=== PATIENT | male | born 1950 | race Caucasian/White ===

== ENCOUNTER 2017-05-18 16:24 | Inpatient (IN) | payer BC ==
--- NOTE | 2017-05-18 16:43 | PDOC ---
Attending Attestation - Resident Resident Name: Shauna Carreon - ED Attending Attestation I have performed the following: I have examined & evaluated the patient, The case was reviewed & discussed with the resident, I agree w/resident's findings & plan, Exceptions are as noted - HPI HPI: 05/18/17 19:13 Pt with CP with exertion - Physicial Exam PE: 05/18/17 19:13 heart reg lungs cta no c/c/e - Medical Decision Making 05/18/17 16:42 I, Dr. Brinda Pizano, DO, attest that this document has been prepared under my direction and personally reviewed by me in its entirety. I further attest, that it accurately reflects all work, treatment, procedures and medical decision -making performed by me. 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 -cxr -ekg 05/18/17 18:30 pt with elevated trop NSTEMI -call placed to cards asa given 05/18/17 18:32 call placed to hospitalist - pending call back 05/18/17 19:12 case discussed with Bobby, accepts pt to service, under Jeff 05/18/17 19:12 Discharge Disposition - Diagnosis NSTEMI (non-ST elevated myocardial infarction) - Discharge Dispostion Condition at time of disposition: Guarded Admit: Yes Heart Score/ECG Review - History History: Highly suspicious - Electrocardiogram EKG: Non specific repolarization disturbance - Age Age: 45-65 - Risk Factors Risk Factors Heart Score: Yes Hx Obesity Based on the list above the patient has:: 1-2 risk factors - Troponin Troponin: >/=3x normal limit - Score Heart Score - Total: 7 - ECG Intrepretation Comment:: 05/18/17 18:28 sinus at 69, nl axis, nl interval, t wave inversions anterior leads - abnl ekg Critical Care Total Critical Care Time (in minutes): 30 Critical Care Statement: The care of this patient involved high complexity decision making to prevent further life threatening deterioration of the patient 's condition and/or to evaluate & treat vital organ system(s) failure or risk of failure.
--- NOTE | 2017-05-18 16:51 | PDOC ---
History of Present Illness - General Chief Complaint: Chest Pain Stated Complaint: CHEST PAIN Time Seen by Provider: 05/18/17 16:41 History Source: Patient - History of Present Illness Initial Comments: 05/18/17 16:56 CC: 2 week h/o chest pain with exertion Patient is a 66 y.o. male with a PMH of morbid obesity and chronic depression who presents with a c/o 2 week h/o of chest pain with exertion (long walks, bike riding) that resolves upon rest. Patient describes the pain as both burning and throbbing. Patient notes a belch and subsequent gurgling sound associated with the resolution of pain. Patient denies any associated shortness of breath, diaphoresis, nausea, vomiting. Patient notes he recently switched his anti-depressant however the chest pain started 2 weeks following the medication switch. Past History - Past Medical History Allergies/Adverse Reactions: Allergies Allergy/AdvReac Type Severity Reaction Status Date / Time No Known Allergies Allergy Verified 05/18/17 16:27 Home Medications: Ambulatory Orders Atorvastatin Ca [Lipitor] 80 mg PO HS tablet 05/18/17 Clopidogrel Bisulfate [Plavix -] 75 mg PO DAILY tablet 05/18/17 Omeprazole 20 mg PO DAILY 05/18/17 Vortioxetine Hydrobromide [Trintellix] 5 mg PO DAILY 05/18/17 GI Disorders: Yes (gerd) Psychiatric Problems: Yes (depression) - Surgical History Abdominal Surgery: Yes (sleeve gastrectomy) - Suicide/Smoking/Psychosocial Hx Smoking History: Former smoker Have you smoked in the past 12 months: No Information on smoking cessation initiated: No Hx Alcohol Use: No Drug/Substance Use Hx: No Substance Use Type: None Review of Systems - Review of Systems Constitutional: No: Diaphoresis, Fever, Night Sweats, Unexplained wgt Loss HEENTM: No: Blurred Vision, Double Vision Respiratory: No: Orthopnea Cardiac (ROS): Yes: Chest Pain ABD/GI: No: Constipated, Nausea, Vomiting : No: Burning, Dysuria Musculoskeletal: No: Back Pain Neurological: No: Headache Psychiatric: Yes: Depression All Other Systems: Reviewed and Negative *Physical Exam - Vital Signs Last Vital Signs Temp Pulse Resp BP Pulse Ox 98.0 F 71 18 180/75 100 05/18/17 16:28 05/18/17 16:28 05/18/17 16:28 05/18/17 16:28 05/18/17 16:28 - Physical Exam General Appearance: Yes: Nourished, Obese HEENT: positive: EOMI Neck: positive: Trachea midline, Supple Respiratory/Chest: positive: Lungs Clear, Normal Breath Sounds Cardiovascular: positive: Regular Rhythm, Regular Rate, S1, S2 Gastrointestinal/Abdominal: positive: Normal Bowel Sounds, Soft Extremity: positive: Normal Capillary Refill, Normal Inspection 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 male who presents with a 2 week h/o of chest pain w/ exertion, with UGI (belching) symptoms upon relief of chest pain. Initial DDX includes GERD vs. Posterior [place] PLAN: 1. Troponin 2. CXR Troponin (+) @ 2.57; spoke with cardiology. Patient given ASA and started on IV Lovenox. Patient to be admitted under Dr. Aguilar *DC/Admit/Observation/Transfer Diagnosis at time of Disposition: NSTEMI (non-ST elevated myocardial infarction) - Discharge Dispostion Disposition: TRANSFER ACUTE CARE/OTHER HOSP Condition at time of disposition: Guarded
[2017-05-18 17:36] LABS: BASOPHIL 1.1 % (0-2.0); EOSINOPHIL 1.4 % (0-4.5); MCH 31.1 pg (25.7-33.7); MCHC 33.5 g/dl (32.0-35.9); MEAN CELL VOLUME 92.9 fl (80-96); MEAN PLT VOLUME 11.5 fl (7.5-11.1); NEUTROPHILS 53.8 % (42.8-82.8); PLATELET COUNT 167 K/MM3 (134-434); RDW 14.1 % (11.9-15.9); WHITE BLOOD COUNT 10.7 K/mm3 (4.0-10.0)
[2017-05-18] MEDS ORDERED: ASPIRIN 325 MG TABLET PO ONE (17:56)
[2017-05-18 17:59] LABS: ALBUMIN 3.7 g/dl (3.4-5.0); ANION GAP 7 (8-16); CALCIUM 8.9 mg/dL (8.5-10.1); CO2 30 mmol/L (21-32); CREATININE 1.1 mg/dL (0.7-1.3); GLUCOSE,RANDOM 86 mg/dL (74-106); SGPT/ALT 26 U/L (12-78)
[2017-05-18 18:16] LABS: ALK PHOS 68 U/L (45-117); BILIRUBIN,TOTAL 0.6 mg/dL (0.2-1.0); TOT PROT 7.1 g/dl (6.4-8.2)
[2017-05-18 18:18] LABS: CPK 194 IU/L (39-308); SGOT/AST 42 U/L (15-37); TROPONIN I 2.57 ng/ml (0.00-0.05)
[2017-05-18] MEDS ORDERED: [UNRECOGNIZED DRUG - OTHER] SQ ONE (18:19)
[2017-05-18] MEDS ORDERED: HEPARIN NA (PORCINE) 5,000 UNITS/ML 1ML VIAL IVPUSH PRN (18:24)
[2017-05-18] MEDS ORDERED: HEPARIN - 25,000 UNIT in SODIUM CHLORIDE 495 ML IV SCH (18:30)
[2017-05-18] MEDS ORDERED: ASPIRIN 81 MG CHEWABLE TABLETS PO ONE (18:31)
[2017-05-18] MEDS ORDERED: ENOXAPARIN NA (PORCINE) 120 MG/0.8 ML DISP.SYRIN SQ SCH (18:45)
[2017-05-18] MEDS ORDERED: ENOXAPARIN NA (PORCINE) 100 MG/1 ML DISP.SYRIN SQ ONE (19:20)
[2017-05-18] MEDS ORDERED: HEPARIN INFUSION - 500 ML IVPB ONE (19:21)
[2017-05-18] MEDS ORDERED: ENOXAPARIN NA (PORCINE) 30 MG/0.3 ML DISP.SYRIN SQ ONE (19:21)
--- NOTE | 2017-05-18 20:53 | HP ---
CHIEF COMPLAINT: intermittent chest pain PCP: Dr. Vicky Trejo ([facility]) HISTORY OF PRESENT ILLNESS: 66yo M with PMH of morbid obesity, sleep apnea, GERD, depression, presents c/o intermittent chest pain x 2 weeks. Chest pain was substernal, non-radiating, described as a burning/throbbing quality so pt attributed pain to GERD. Chest pain was provoked by exertion (long walks and bike riding). Chest pain is now resolved. Family hx of father passed from [place] at age 85 and brother recently diagnosed with AAA at age 64. Pt recently switched anti-depression medication to Trintellix. Pt's at bedside, brought pt's cpap machine for his sleep apnea. Pt denies fever, chills, headache, palpitations, sob, syncope, nausea, vomiting. ER course was notable for: (1) EKG -> NSR (2) trop -> 2.57 (3) Lovenox, ASA PAST MEDICAL HISTORY: depression gerd sleep apnea morbid obesity osteoarthritis of shoulders peripheral neuropathy PAST SURGICAL HISTORY: sleeve gastrectomy 2010 Right total hip replacement 2009 Social History: Smoking: former, 1 pipe per day, quit 35 yrs ago Alcohol: former, sober x 3.5 yrs Drugs: denies Family History: dad - passed from [place] age 85 brother - AAA age 64 Allergies No Known Allergies Allergy (Verified 05/18/17 16:27) HOME MEDICATIONS: Home Medications Medication Instructions Recorded Omeprazole 20 mg PO DAILY 05/18/17 Vortioxetine Hydrobromide 5 mg PO DAILY 05/18/17 [Trintellix] REVIEW OF SYSTEMS CONSTITUTIONAL: Absent: fever, chills, diaphoresis, generalized weakness, malaise HEENT: Absent: rhinorrhea, nasal congestion, throat pain, visual changes CARDIOVASCULAR: Present: chest pain with exertion Absent: syncope, palpitations, irregular heart rate, lightheadedness, peripheral edema RESPIRATORY: Absent: cough, shortness of breath, wheezing, stridor, hemoptysis GASTROINTESTINAL: Absent: abdominal pain, abdominal distension, nausea, vomiting, diarrhea, constipation, melena, hematochezia GENITOURINARY: Absent: dysuria, hematuria, flank pain MUSCULOSKELETAL: Present: chronic back pain, shoulder pain 2/2 OA Absent: myalgia, joint swelling, neck pain SKIN: Absent: rash, itching, pallor HEMATOLOGIC/IMMUNOLOGIC: Absent: easy bleeding, easy bruising NEUROLOGIC: Present: focal paresthesias - hand tingling Absent: headache, dizziness PHYSICAL EXAMINATION Last Vital Signs Temp Pulse Resp BP Pulse Ox 98.0 F 71 18 180/75 100 05/18/17 16:28 05/18/17 16:28 05/18/17 16:28 05/18/17 16:28 05/18/17 16:28 GENERAL: Awake, alert, and fully oriented, in no acute distress. HEAD: Normal with no signs of trauma. EYES: Extraocular movements intact, sclera anicteric, conjunctiva clear. No lid lag. EARS, NOSE, THROAT: Moist mucous membranes. NECK: Normal range of motion, supple, trachea midline. LUNGS: Breath sounds equal, clear to auscultation bilaterally. No wheezes, and no crackles. No accessory muscle use. HEART: Regular rate and rhythm, normal S1 and S2 without murmur, rub or gallop. ABDOMEN: Soft, nontender, not distended, normoactive bowel sounds, no guarding, no rebound, no masses. MUSCULOSKELETAL: Normal range of motion at all joints. No bony deformities or tenderness. No CVA tenderness. LOWER EXTREMITIES: 1+ pitting edema nuha. Warm, well-perfused. No calf tenderness. PSYCHIATRIC: Cooperative. Good eye contact. Appropriate mood and affect. SKIN: Warm, dry, normal turgor, no rashes or lesions noted. Laboratory Last Values WBC 10.7 K/mm3 (4.0-10.0) H 05/18/17 17:26 RBC 5.26 M/mm3 (4.00-5.60) 05/18/17 17:26 Hgb 16.4 GM/dL (11.7-16.9) 05/18/17 17:26 Hct 48.8 % (35.4-49) 05/18/17 17:26 MCV 92.9 fl (80-96) 05/18/17 17:26 MCH 31.1 pg (25.7-33.7) 05/18/17 17:26 MCHC 33.5 g/dl (32.0-35.9) 05/18/17 17: RDW 14.1 % (11.9-15.9) 05/18/17 17:26 Plt Count 167 K/MM3 (134-434) 05/18/17 17:26 MPV 11.5 fl (7.5-11.1) H 05/18/17 17:26 Neutrophils % 53.8 % (42.8-82.8) 05/18/17 17:26 Lymphocytes % 32.9 % (8-40) 05/18/17 17:26 Monocytes % 10.8 % (3.8-10.2) H 05/18/17 17:26 Eosinophils % 1.4 % (0-4.5) 05/18/17 17:26 Basophils % 1.1 % (0-2.0) 05/18/17 17:26 Sodium 142 mmol/L (136-145) 05/18/17 17:26 Potassium 4.6 mmol/L (3.5-5.1) 05/18/17 17:26 Chloride 105 mmol/L (98-107) 05/18/17 17:26 Carbon Dioxide 30 mmol/L (21-32) 05/18/17 17:26 Anion Gap 7 (8-16) L 05/18/17 17:26 BUN 21 mg/dL (7-18) H 05/18/17 17:26 Creatinine 1.1 mg/dL (0.7-1.3) 05/18/17 17:26 Creat Clearance w eGFR > 60 (>60) 05/18/17 17:26 Random Glucose 86 mg/dL (74-106) 05/18/17 17:26 Calcium 8.9 mg/dL (8.5-10.1) 05/18/17 17:26 Total Bilirubin 0.6 mg/dL (0.2-1.0) 05/18/17 17:26 AST 42 U/L (15-37) H 05/18/17 17:26 ALT 26 U/L (12-78) 05/18/17 17:26 Alkaline Phosphatase 68 U/L (45-117) 05/18/17 17:26 Creatine Kinase 194 IU/L (39-308) 05/18/17 17:26 Creatine Kinase Index 4.4 % (0.0-5.0) 05/18/17 17:26 CK-MB (CK-2) 8.648 ng/mL (0.5-3.6) H 05/18/17 17:26 Troponin I 2.57 ng/ml (0.00-0.05) H* 05/18/17 17:26 Total Protein 7.1 g/dl (6.4-8.2) 05/18/17 17:26 Albumin 3.7 g/dl (3.4-5.0) 05/18/17 17:26 IMAGIN05/18/17 EKG -> NSR 05/18/17 CXR -> no acute lung pathology ASSESSMENT/PLAN: 66yo M with PMH of morbid obesity, sleep apnea, GERD, depression, presents with hypertensive emergency and nstemi. 1) nstemi/hypertensive emergency - Heparin drip to begin at 6am tomorrow (as Lovenox given in ER), with CBC/ ptt/stool for occult blood series - Plavix 600mg stat, Plavix 75mg po daily beginning tomorrow - Lipitor 80mg po daily - hold Metoprolol 2/2 heart rate - echo - Cardiology Consult - f/u troponin, hgba1c, bnp, mg, phos, tsh - f/u Duplex venous US nuha LE to - npo after midnight, as pt may be transferred for cath tomorrow 2) depression - continue home med Trintellix 5mg po daily 3) gerd - Protonix 40mg IVPB daily 4) sleep apnea - continue CPAP 5) peripheral neuropathy - pt completing outpatient work-up 6) DVT prophylaxis - Heparin drip Pt will be transferred for cardiac catheterization to [facility]. Visit type - Emergency Visit Emergency Visit: Yes ED Registration Date: 05/18/17 Care time: The patient presented to the Emergency Department on the above date and was hospitalized for further evaluation of their emergent condition. - New Patient This patient is new to me today: Yes Date on this admission: 05/18/17 - Critical Care Critical Care patient: No
[2017-05-18] MEDS ORDERED: CLOPIDOGREL BISULFATE 300 MG TABLET PO ONE (21:06)
--- NOTE | 2017-05-18 21:34 | HP ---
Admitting History and Physical - Admission History of Present Illness: 66M with PMH of morbid obesity MANSI and depression who presents to the ED with 2 week history of chest pain. Patient states he has been having exertional chest pain which resolves at rest. He also has GERD and his chest pain is sometimes relieved when he belches. His symptoms have been going on for the past 2 week. He states that he at times has numbness in his hand as well. He states he has peripheral neuropathy in his legs and the cause is unknown. Found to have an NSTEMI in the ED. During interview was getting patient riled up and he started to have symtopms and they went away when he calmed down. He states he thought his symptoms were all due to GERD. He had a stress test in the past patient states "I had it done because i am fat" which was negative. He denies nausea vomiting fevers chills or shortness of breath He denies palpitations or presyncopal symptoms. Denies dysuria. He states his left leg is always more swollen for the right History Source: Patient Limitations to Obtaining History: No Limitations - Past Medical History Additional Past Medical History: as above - Past Surgical History Additional Past Surgical History: Hip replacement gastric sleeve - Smoking History Smoking history: Former smoker (used to smoke a pipe in his 20s) Have you smoked in the past 12 months: No - Alcohol/Substance Use Hx Alcohol Use: No Home Medications - Allergies Allergies/Adverse Reactions: Allergies Allergy/AdvReac Type Severity Reaction Status Date / Time No Known Allergies Allergy Verified 05/18/17 16:27 - Home Medications Home Medications: Ambulatory Orders Omeprazole 20 mg PO DAILY 05/18/17 Vortioxetine Hydrobromide [Trintellix] 5 mg PO DAILY 05/18/17 Family Disease History - Family Disease History Family Disease History: Heart Disease: Father ( of [place] in 80's ) Review of Systems - Review of Systems Constitutional: reports: No Symptoms Eyes: reports: No Symptoms HENT: reports: No Symptoms Neck: reports: No Symptoms Cardiovascular: reports: Chest Pain, Edema Respiratory: denies: Orthopnea, SOB Genitourinary: reports: No Symptoms Breasts: reports: No Symptoms Reported Musculoskeletal: reports: No Symptoms Integumentary: reports: No Symptoms Neurological: reports: Parasthesia Endocrine: reports: No Symptoms Psychiatric: reports: Depression Physical Examination Vital Signs: Vital Signs Temperature 98.0 F 05/18/17 16:28 Pulse Rate 71 05/18/17 16:28 Respiratory Rate 18 05/18/17 16:28 Blood Pressure 180/75 05/18/17 16:28 O2 Sat by Pulse Oximetry (%) 100 05/18/17 16:28 Constitutional: Yes: No Distress, Calm, Obese Eyes: Yes: Conjunctiva Clear, EOM Intact HENT: Yes: Atraumatic, Normocephalic Neck: Yes: Supple, Trachea Midline Cardiovascular: Yes: Regular Rate and Rhythm, S1, S2. No: JVD, Murmur Respiratory: Yes: Regular, CTA Bilaterally Gastrointestinal: Yes: Normal Bowel Sounds, Soft. No: Tenderness Breast(s): Yes: Gynecomastia Edema: LLE: 1+ (pitting up to distal gallegos ), RLE: 1+ (pitting up to distal gallegos ) Peripheral Pulses: Left Doralis Pedis: 2+, Right Dorsalis Pedis: 2+ Integumentary: Yes: Venous Stasis Changes (bilateral lower extremities) Imaging - Results Chest X-ray: Report Reviewed, Image Reviewed EKG: Report Reviewed, Image Reviewed Assessment/Plan 66M with PMH of obesity MANSI depression presents to the ED with new onset angina and NSTEMI. Problem list: [id number] onset NSTEMI hypertensive emergency obesity-morbid obstructive sleep apnea depression peripheral neuropathy GERD Admit to telmetry cardiac monitoring trend troponins cardiology consult case discusedd with Dr. 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 - New Patient This patient is new to me today: Yes Date on this admission: 05/18/17 - Critical Care Critical Care patient: No
--- NOTE | 2017-05-18 21:54 | PN ---
Teaching Attending Note Name of Resident: Maral Arndt ATTENDING PHYSICIAN STATEMENT I saw and evaluated the patient. I reviewed the resident's note and discussed the case with the resident. I agree with the resident's findings and plan as documented. SUBJECTIVE: 66 year old male c/o 2 week history of epigastric /substernal exertional chest pain 6/10 in intensity , non radiating . Relieved by rest . Associated with left arm numbness. Denies diaphoresis, lightheadedness or syncope. Patient is seen in ED for possible admission . In ED received Lovenox SC 120 Heparin drip was ordered as per [facility] GERD SxHX Gastric sleeve Social History Denies smoking Denies alcohol abuse Family History CAD - father Aortic aneurism -brother OBJECTIVE: Vital Signs Temperature 98.0 F 05/18/17 16:28 Pulse Rate 71 05/18/17 16:28 Respiratory Rate 18 05/18/17 16:28 Blood Pressure 180/75 05/18/17 16:28 O2 Sat by Pulse Oximetry (%) 100 05/18/17 16:28 HENT: Yes: Atraumatic, Normocephalic Neck: Yes: Supple, Trachea Midline Cardiovascular: Yes: Regular Rate and Rhythm, S1, S2. No: JVD, Murmur Respiratory: Yes: Regular, CTA Bilaterally Gastrointestinal: Yes: Normal Bowel Sounds, Soft. No: Tenderness Breast(s): Yes: Gynecomastia Edema: LLE: 1+ (pitting up to distal gallegos ), RLE: 1+ (pitting up to distal gallegos ) Peripheral Pulses: Left Doralis Pedis: 2+, Right Dorsalis Pedis: 2+ Integumentary: Yes: Venous Stasis Changes (bilateral lower extremities) CBC, BMP 05/18/17 17:26 05/18/17 17:26 Troponin - 2.7 EKG -reviewed ASSESSMENT AND PLAN: 1. Unstabe Angina 2. NSTEMI 3. Obesity 4. Uncontrolled HTN Lovenox 120SC given in the ED Hold heparin drip for now and start in 12HR No bbl due to bradycardia Loaded with Plavix in ED Telemetry After discussion with patient and family about the need for cardiac catheterisation ( that is not offered in this facility) they would like to be transferred to [place] under care of [facility] Dr Garcia. Case was discussed with Dr Garcia. Transport is on the way .
[2017-05-18] MEDS ORDERED: ATORVASTATIN CA 80 MG TABLET (FP) PO SCH (22:00)
[2017-05-18 22:02] LABS: PHOSPHOROUS 2.8 mg/dL (2.5-4.9)
[2017-05-18 22:08] LABS: THYROID STIMULATING HORMONE 3.86 uIU/ml (0.358-3.74)
[2017-05-18 22:09] LABS: INR 1.2 (0.82-1.09); PROTHROMBIN TIME (PATIENT) 13.2 SEC (9.98-11.88)
[2017-05-18 22:18] LABS: MAGNESIUM 2.1 mg/dL (1.8-2.4)
[2017-05-18 22:20] LABS: TROPONIN I 2.63 ng/ml (0.00-0.05)
[2017-05-18] MEDS ORDERED: CLOPIDOGREL BISULFATE 300 MG TABLET ONE (22:36)
[2017-05-18] MEDS ORDERED: ATORVASTATIN CA 80 MG TABLET (FP) ONE (22:36)
--- NOTE | 2017-05-18 23:11 | DS ---
Physical Exam: SUBJECTIVE: Patient seen and examined. Being transferred for cardiac cath OBJECTIVE: Vital Signs Period Temp Pulse Resp BP Sys/Curiel Pulse Ox Last 24 Hr 98.2 F 58 18 162/87 99 PHYSICAL EXAM Constitutional: Yes: No Distress, Calm, Obese Eyes: Yes: Conjunctiva Clear, EOM Intact HENT: Yes: Atraumatic, Normocephalic Neck: Yes: Supple, Trachea Midline Cardiovascular: Yes: Regular Rate and Rhythm, S1, S2. No: JVD, Murmur Respiratory: Yes: Regular, CTA Bilaterally Gastrointestinal: Yes: Normal Bowel Sounds, Soft. No: Tenderness Breast(s): Yes: Gynecomastia Edema: LLE: 1+ (pitting up to distal gallegos ), RLE: 1+ (pitting up to distal gallegos ) Peripheral Pulses: Left Doralis Pedis: 2+, Right Dorsalis Pedis: 2+ Integumentary: Yes: Venous Stasis Changes (bilateral lower extremities) LABS Laboratory Results - last 24 hr 05/18/17 05/18/17 05/18/17 19:54 20:35 20:35 PT with INR INR PTT (Actin FS) Phosphorus 2.8 Magnesium 2.1 Creatine Kinase Cancelled 192 Creatine Kinase Index 3.9 CK-MB (CK-2) 7.583 H Troponin I Cancelled 2.63 H* B-Natriuretic Peptide 1141.96 H TSH 3.86 H 05/18/17 05/18/17 21:45 21:45 PT with INR 13.20 H INR 1.20 H PTT (Actin FS) 32.9 Phosphorus Magnesium Creatine Kinase Creatine Kinase Index CK-MB (CK-2) Troponin I B-Natriuretic Peptide TSH HOSPITAL COURSE: Date of Admission:05/18/17 Date of Discharge: 05/18/17 66M with history of obesity MANSI GERD presents with chest pain and anginal symtpoms for 2 weeks. Pain is with exertional and is relieved by rest. Found to have NSTEMI with troponin 2.6. Cardiology consulted. Given lovenox and plavix loaded given aspirin and statin. Admitted to the hospitalist service but is still in the ED and will be transferred to [place] for cardiac catheterization under the care of Dr. Garcia. Minutes to complete discharge: 35 Discharge Summary Reason For Visit: NSTEMI Current Active Problems Angina pectoris (Acute) Hypertensive emergency (Acute) NSTEMI (non-ST elevated myocardial infarction) (Acute) Depression (Chronic) GERD (gastroesophageal reflux disease) (Chronic) Obesity (Chronic) Obstructive sleep apnea (Chronic) Condition: Guarded - Instructions Diet, Activity, Other Instructions: you are being transferred to [facility] for cardiac catheterization. it is important you continue to follow up with your doctors and cardiologists continue your medications eat a low sodium diet Good luck Referrals: Vicky Trejo MD [Primary Care Provider] - Disposition: TRANSFER ACUTE CARE/OTHER HOSP - Home Medications Comprehensive Discharge Medication List: Ambulatory Orders Atorvastatin Ca [Lipitor] 80 mg PO HS tablet 05/18/17 Clopidogrel Bisulfate [Plavix -] 75 mg PO DAILY tablet 05/18/17 Omeprazole 20 mg PO DAILY 05/18/17 Vortioxetine Hydrobromide [Trintellix] 5 mg PO DAILY 05/18/17 This patient is new to me today: Yes Date on this admission: 05/18/17 Emergency Visit: Yes ED Registration Date: 05/18/17 Care time: The patient presented to the Emergency Department on the above date and was hospitalized for further evaluation of their emergent condition. Critical Care patient: Yes Total Critical Care Time (in minutes): 35 Critical Care Statement: The care of this patient involved high complexity decision making to prevent further life threatening deterioration of the patient 's condition and/or to evaluate & treat vital organ system(s) failure or risk of failure. - Discharge Referral Referred to [facility] No
[2017-05-19 01:14] VITALS: BMI 44.5
[2017-05-19] MEDS ORDERED: HEPARIN INFUSION - 500 ML IVPB SCH (06:00)
[2017-05-19] MEDS ORDERED: HEPARIN NA (PORCINE) 5,000 UNITS/ML 1ML VIAL IVPUSH PRN ×2 (06:00)
[2017-05-19 07:29] LABS: EOSINOPHIL 2.5 % (0-4.5); MCHC 33.7 g/dl (32.0-35.9); MEAN CELL VOLUME 91.9 fl (80-96); MEAN PLT VOLUME 11.1 fl (7.5-11.1); NEUTROPHILS 49.1 % (42.8-82.8); PLATELET COUNT 146 K/MM3 (134-434); RDW 13.7 % (11.9-15.9); WHITE BLOOD COUNT 8.4 K/mm3 (4.0-10.0)
[2017-05-19 08:33] LABS: ALBUMIN 3.2 g/dl (3.4-5.0); ANION GAP 6 (8-16); BILIRUBIN,TOTAL 0.9 mg/dL (0.2-1.0); CALCIUM 8.3 mg/dL (8.5-10.1); CO2 28 mmol/L (21-32); GLUCOSE,RANDOM 83 mg/dL (74-106); SGOT/AST 27 U/L (15-37); SGPT/ALT 21 U/L (12-78); TOT PROT 6.4 g/dl (6.4-8.2)
[2017-05-19 08:47] LABS: ALK PHOS 63 U/L (45-117); CPK 87 IU/L (39-308)
[2017-05-19 09:45] LABS: TROPONIN I 1.59 ng/ml (0.00-0.05)
--- NOTE | 2017-05-19 09:50 | EKG ---
Test Reason : Blood Pressure : / mmHG Vent. Rate : 060 BPM Atrial Rate : 060 BPM P-R Int : 166 ms QRS Dur : 082 ms QT Int : 426 ms P-R-T Axes : 041 006 057 degrees QTc Int : 426 ms NORMAL SINUS RHYTHM NONSPECIFIC T WAVE ABNORMALITY ABNORMAL ECG NO PREVIOUS ECGS AVAILABLE Confirmed by SAE BARROS MD ([id number]) on 05/19/2017 9:50:09 AM Referred By: Confirmed By:SAE BARROS MD
[2017-05-19] MEDS ORDERED: PANTOPRAZOLE SODIUM 40 MG in SODIUM CHLORIDE 100 ML IVPB SCH (10:00)
[2017-05-19] MEDS ORDERED: CLOPIDOGREL BISULFATE 75 MG TABLET (FP) PO SCH (10:00)
[2017-05-19 10:37] VITALS: BP 141/66; PULSE 66; TEMP 98.1
--- NOTE | 2017-05-19 11:36 | CON.CARD ---
Cardiology Consult (text) - Consultation Consultation Note: cc: cp hpi: 66 m hx obesity, depression, MANSI on cpap, here with cp. Pt has several week hx of exertional central chest pain that resolves with rest. No sob, palps , dizzy, loc, pnd, orthopnea, le edema. No known hx of hrt dz, but no recent cardiac testing. CP wasn't any worse lately but due to recurrence he decided to come to ER. Trops mildly elevated and treated for nstemi. Arranged [facility]. Currently no cp. pmh: per hpi psh: gastric sleeve social: ex tob fam: no premature cad, scd ros: per hpi; no nvd, fever, cough, begum, vision changes, gib, hematuria, dysuria , muscle pains meds: Home Medications Medication Instructions Recorded Atorvastatin Ca [Lipitor] 80 mg PO HS tablet 05/18/17 Clopidogrel Bisulfate [Plavix -] 75 mg PO DAILY tablet 05/18/17 Omeprazole 20 mg PO DAILY 05/18/17 Vortioxetine Hydrobromide 5 mg PO DAILY 05/18/17 [Trintellix] pe: Vital Signs Period Temp Pulse Resp BP Sys/Curiel Pulse Ox Last 24 Hr 97.7 F-98.2 F 58-71 18-20 141-180/66-87 98-100 nad no jvd rrr s1s2 no mrg cta bl nl eff aaox3 no le e/c/c abd nt nd pos bs no jaundice diaphoresis pos dp pt no carotid bruits Laboratory Last Values WBC 8.4 K/mm3 (4.0-10.0) 05/19/17 05:35 RBC 5.14 M/mm3 (4.00-5.60) 05/19/17 05:35 Hgb 15.9 GM/dL (11.7-16.9) 05/19/17 05:35 Hct 47.2 % (35.4-49) 05/19/17 05:35 MCV 91.9 fl (80-96) 05/19/17 05:35 MCH 31.0 pg (25.7-33.7) 05/19/17 05:35 MCHC 33.7 g/dl (32.0-35.9) 05/19/17 05:35 RDW 13.7 % (11.9-15.9) 05/19/17 05:35 Plt Count 146 K/MM3 (134-434) 05/19/17 05:35 MPV 11.1 fl (7.5-11.1) 05/19/17 05:35 Neutrophils % 49.1 % (42.8-82.8) 05/19/17 05:35 Lymphocytes % 37.3 % (8-40) 05/19/17 05:35 Monocytes % 10.1 % (3.8-10.2) 05/19/17 05:35 Eosinophils % 2.5 % (0-4.5) 05/19/17 05:35 Basophils % 1.0 % (0-2.0) 05/19/17 05:35 PT with INR 13.20 SEC (9.98-11.88) H 05/18/17 21:45 INR 1.20 (0.82-1.09) H 05/18/17 21:45 PTT (Actin FS) 32.9 SECONDS (26.9-34.4) 05/18/17 21:45 Sodium 139 mmol/L (136-145) 05/19/17 05:35 Potassium 3.7 mmol/L (3.5-5.1) 05/19/17 05:35 Chloride 105 mmol/L (98-107) 05/19/17 05:35 Carbon Dioxide 28 mmol/L (21-32) 05/19/17 05:35 Anion Gap 6 (8-16) L 05/19/17 05:35 BUN 16 mg/dL (7-18) D 05/19/17 05:35 Creatinine 1.0 mg/dL (0.7-1.3) 05/19/17 05:35 Creat Clearance w eGFR > 60 (>60) 05/19/17 05:35 Random Glucose 83 mg/dL (74-106) 05/19/17 05:35 Hemoglobin A1c % 5.0 % (4.8-6.0) 05/19/17 05:35 Calcium 8.3 mg/dL (8.5-10.1) L 05/19/17 05:35 Phosphorus 2.8 mg/dL (2.5-4.9) 05/18/17 20:35 Magnesium 2.1 mg/dL (1.8-2.4) 05/18/17 20:35 Total Bilirubin 0.9 mg/dL (0.2-1.0) D 05/19/17 05:35 AST 27 U/L (15-37) D 05/19/17 05:35 ALT 21 U/L (12-78) 05/19/17 05:35 Alkaline Phosphatase 63 U/L (45-117) 05/19/17 05:35 Creatine Kinase 87 IU/L (39-308) 05/19/17 05:35 Creatine Kinase Index 3.9 % (0.0-5.0) 05/18/17 20:35 CK-MB (CK-2) 7.583 ng/mL (0.5-3.6) H 05/18/17 20:35 Troponin I 1.59 ng/ml (0.00-0.05) H* D 05/19/17 05:35 B-Natriuretic Peptide 1141.96 pg/ml (5-125) H 05/18/17 20:35 Total Protein 6.4 g/dl (6.4-8.2) 05/19/17 05:35 Albumin 3.2 g/dl (3.4-5.0) L 05/19/17 05:35 TSH 3.86 uIU/ml (0.358-3.74) H 05/18/17 20:35 ecgs 05/18/17: sr, nl intervals, non spec tw changes, no st changes cxr: clear lungs tele: sr a/p: 66 m hx obesity, depression, MANSI on cpap, here with cp. cp, nstemi: -hx of exertional cp, now here with positive trops c/w nstemi -currently stable, no cp -cont asa, plavix, hep gtt, statin -check echo -cont tele -planned [facility] cardiac cath obesity: -wt loss discussed mansi: -cont cpap at night
[2017-05-19 13:10] LABS: CHOLESTEROL 148 mg/dL (50-200)
--- NOTE | 2017-05-23 09:48 | EKG ---
Test Reason : Blood Pressure : / mmHG Vent. Rate : 069 BPM Atrial Rate : 069 BPM P-R Int : 158 ms QRS Dur : 084 ms QT Int : 414 ms P-R-T Axes : 051 016 051 degrees QTc Int : 443 ms NORMAL SINUS RHYTHM POSSIBLE LEFT ATRIAL ENLARGEMENT BORDERLINE ECG NO PREVIOUS ECGS AVAILABLE Confirmed by ELIZABETH RUCKER, JAKE ([id number]) on 05/23/2017 9:48:26 AM Referred By: Confirmed By:JAKE JOHNSON MD
== END 2017-05-19 14:34 | disposition short-term general hospital (02) | DRG 281 ==
LOC: JER 16:24 → JERBED 19:13 → J4W 05-19 00:58
PROVIDERS: ADMIT Internal Medicine; ATTEND Internal Medicine
DX: I21.4 Non-ST elevation (NSTEMI) myocardial infarction (principal); Z68.41 Body mass index [BMI] 40.0-44.9, adult; I16.1 Hypertensive emergency; E66.01 Morbid (severe) obesity due to excess calories; F32.9 Major depressive disorder, single episode, unspecified; K21.9 Gastro-esophageal reflux disease without esophagitis; G47.39 Other sleep apnea; G62.89 Other specified polyneuropathies; M19.012 Primary osteoarthritis, left shoulder; M19.011 Primary osteoarthritis, right shoulder; I20.0 Unstable angina; Z87.891 Personal history of nicotine dependence; Z98.84 Bariatric surgery status; Z96.641 Presence of right artificial hip joint
CPT/HCPCS: 36415; 71020-TC; 80053; 80061; 82553; 83036; 83721; 83735; 83880; 84100; 84443; 84484; 85025; 85610; 85730; 93005; 93010; 93306-TC; 93970-TC; 99285-25; J1644